=== PATIENT | male | born 2000 | race Caucasian/White ===

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

== ENCOUNTER 2021-03-06 16:41 | Emergency (ER) | payer MEDICAID, OTHER ==
[~2021-03-06] VITALS: Ht 182.9 cm; Wt 79.5 kg
[~2021-03-06 16:41] MED LIST: CYCL5TAB PO; IBUP800T19 PO
[2021-03-06 16:58] VITALS: BP 130/86
[2021-03-06] MEDS ORDERED: DIPH,PERTUSS(ACELL),TET VAC/PF 0.5 ML SYRINGE. VAX IM ONE (17:15)
--- NOTE | 2021-03-06 17:15 | PHYS DOC ---
Past History Past Medical History: No Pertinent History Past Surgical History: No Surgical History Smoking: Non-smoker Alcohol Use: None Drug Use: None General Adult EDM: Chief Complaint: FINGER INJURY HPI: HPI: Patient is a 20-year-old male who presents to the emergency department for superficial lacerations to the tip of his left third finger that occurred today after he cut it with a razor blade while attempting to remove the decal from a car window. Patient reports that he presented to the ER because he can get the bleeding to stop with the bleeding has stopped. Patient is unsure of when his last tetanus shot was. He denies any decreased range of motion or decreased sensation to finger. Review of Systems: Review of Systems: 14 body systems of the review of systems have been reviewed. See HPI for pertinent positive and negative responses, otherwise all other systems are negative, nonpertinent or noncontributory Allergies: Allergies: Allergies Coded Allergies Type Severity Reaction Last Updated Verified Penicillins Allergy Intermediate 03/06/21 Yes Physical Exam: PE: Constitutional: Well developed, well nourished, no acute distress, non-toxic appearance. [] HENT: Normocephalic, atraumatic, Eyes: PERRL, EOMI, conjunctiva normal, no discharge. [] Neck: Normal range of motion no stridor Cardiovascular: Normal peripheral perfusion Lungs & Thorax: Normal work of breathing, no tachypnea Abdomen: Soft and flat Skin: Warm, dry, no erythema, no rash.Left third finger: Range of motion intact, neuro intact, no active bleeding, 3 superficial lacerations less than 0.5 cm in length noted to the tip of patient's finger, no foreign bodies visible Back: Normal range of motion Extremities: No tenderness, no cyanosis, no clubbing, ROM intact, no edema. [] Neurologic: Alert and oriented X 3, normal motor function, normal sensory function, no focal deficits noted. [] Psychologic: Affect normal, judgement normal, mood normal. [] EKG: EKG: [] Radiology/Procedures: Radiology/Procedures: [] Heart Score: C/O Chest Pain: N/A Risk Factors: Risk Factors: DM, Current or recent (<one month) smoker, HTN, HLP, family history of CAD, obesity. Risk Scores: Score 0 - 3: 2.5% MACE over next 6 weeks - Discharge Home Score 4 - 6: 20.3% MACE over next 6 weeks - Admit for Clinical Observation Score 7 - 10: 72.7% MACE over next 6 weeks - Early Invasive Strategies Course & Med Decision Making: Course & Med Decision Making Pertinent Labs and Imaging studies reviewed. (See chart for details) Patient presents to the emergency department for superficial lacerations to the tip of his left third finger. Wound was cleansed with sterile saline and chlorhexidine wash. There was no active bleeding noted. Superficial lacerations repaired with Dermabond. Tetanus updated in the ER. Patient advised to keep clean and dry. Advised not to submerge in water for 48 hours. Advised to monitor for signs of infection and follow-up with primary care provider. I discussed with patient all findings as well as the need to follow- up with PCP for further evaluation and treatment or return to the ER if any new or worsening symptoms. Strict return precautions were also discussed at length. Patient voiced understanding and agreement with the plan. Patient is hemodynamically stable at the time of disposition. Arelis Disclaimer: Arelis Disclaimer: This electronic medical record was generated, in whole or in part, using a voice recognition dictation system. Departure Departure: Impression: Primary Impression: Laceration Disposition: HOME / SELF CARE / HOMELESS Condition: GOOD Referrals: FLORENCE FORMAN (PCP) Patient Instructions: Laceration Care, Adult Additional Instructions: You are seen in the emergency department for a superficial laceration to the end of your finger. This was repaired with skin glue. Please do not submerge your hand in any water for 48 hours. Keep clean and dry. Monitor for signs of infection which include redness, warmth, swelling or drainage. Your tetanus was updated in the emergency department today. You can take Tylenol and/or ibuprofen for pain. Follow-up with your primary care provider within a week for reevaluation. Please return to the emergency department if you develop any decreased sensation, decreased range of motion or any signs of infection. WES LINDSEY [employer] MACHINE OPERATOR Mar 06, 2021 17:15
== END 2021-03-06 17:50 | disposition home or self-care (01) ==
LOC: ER 16:41
DX: S61.213A Laceration without foreign body of left middle finger without damage to nail, initial encounter (principal); Z88.0 Allergy status to penicillin; W26.8XXA Contact with other sharp object(s), not elsewhere classified, initial encounter; Y93.89 Activity, other specified; Y92.89 Other specified places as the place of occurrence of the external cause; Y99.8 Other external cause status
CPT/HCPCS: 12001; 90471; 90715; 99283-25